=== PATIENT | male | born 1980 | race Caucasian/White ===

== ENCOUNTER 2019-06-21 06:27 | Emergency (ER) | payer MEDICAID ==
[~2019-06-21] VITALS: Ht 177.8 cm; Wt 90.9 kg
[~2019-06-21 06:27] MED LIST: HYDR1TAB PO; SULF-117 PO
[2019-06-21 06:33] VITALS: BP 132/84
[2019-06-21] MEDS ORDERED: sulfamethoxazole/trimethoprim DS (800/160mg) tablet PO ONE (06:55)
[2019-06-21] MEDS ORDERED: LORazepam 1 MG tablet PO ONE (06:55)
[2019-06-21] MEDS ORDERED: HYDROcodone/acetaminophen 10/325mg tab PO ONE (06:55)
[2019-06-21] MEDS ORDERED: LIDOcaine 1% w/epiNEPHrine 1:200,000 30ml vial IM ONE (06:55)
[2019-06-21] MEDS ORDERED: meclizine 12.5mg tablet PO ONE (07:20)
[2019-06-21] MEDS ORDERED: ondansetron 4mg rapidly disintigrating tab PO ONE (07:20)
[2019-06-21] MEDS ORDERED: SULF1TAB49 PO (07:22)
== END 2019-06-21 07:54 | disposition home or self-care (01) ==
LOC: ER 06:28
DX: L02.415 Cutaneous abscess of right lower limb (principal); F41.9 Anxiety disorder, unspecified; F32.9 Major depressive disorder, single episode, unspecified; F15.90 Other stimulant use, unspecified, uncomplicated; F11.90 Opioid use, unspecified, uncomplicated; Z86.19 Personal history of other infectious and parasitic diseases; Z86.14 Personal history of Methicillin resistant Staphylococcus aureus infection; Z79.2 Long term (current) use of antibiotics; Z79.899 Other long term (current) drug therapy
CPT/HCPCS: 10060; 99284

== ENCOUNTER 2019-06-24 07:37 | Emergency (ER) | payer MEDICAID ==
[~2019-06-24] VITALS: Ht 177.8 cm; Wt 86.4 kg
[~2019-06-24 07:37] MED LIST changes: +SULF1TAB49 PO
[2019-06-24 07:40] VITALS: BP 138/79
[2019-06-24 08:43] LABS: HEMATOCRIT 43.8 % (42.0-52.0); HEMOGLOBIN 15.1 g/dl (14.0-17.9); LYMPHOCYTES # (AUTO) 1.1 X10'3 (1.1-4.8); MEAN CORPUSCULAR HEMOGLOBIN 32.7 PG (27.0-31.0); MEAN CORPUSCULAR HGB CONC 34.6 g/dL (33.0-36.5); MEAN PLATELET VOLUME 7.2 FL (7.4-10.4); RED CELL DISTRIBUTION WIDTH 13.3 % (11.5-14.5); WHITE BLOOD COUNT 8.2 X10'3 (4.5-11.0)
[2019-06-24 08:45] LABS: BASOPHILS % (AUTO) 0.6 % (0-1); EOSINOPHILS # (AUTO) 0.3 X10'3 (0-0.9); EOSINOPHILS % (AUTO) 3.1 % (0-6); LYMPHOCYTES % (AUTO) 13.9 % (21-51); MEAN CORPUSCULAR VOLUME 94.6 FL (78-98); MONOCYTES # (AUTO) 0.6 X10'3 (0-0.9); NEUTROPHILS # (AUTO) 6.1 X10'3 (1.8-7.7); NEUTROPHILS % (AUTO) 75.4 % (42-75); PLATELET COUNT 234 X10'3 (140-440); RED BLOOD COUNT 4.63 X10'6 (4.70-6.10)
[2019-06-24] MEDS ORDERED: DOXY100C43 PO (08:50)
[2019-06-24 08:55] LABS: ALANINE AMINOTRANSFERASE 27 U/L (12-78); ALBUMIN/GLOBULIN RATIO 0.7 (1.1-1.5); ALKALINE PHOSPHATASE 66 IU/L (46-116); ANION GAP 9 (8-16); ASPARTATE AMINO TRANSFERASE 15 U/L (10-37); BILIRUBIN,TOTAL 0.1 MG/DL (0.1-1.0); BLOOD UREA NITROGEN 19 MG/DL (7-18); BUN/CREATININE RATIO 18.8 (5.4-32.0); CALCIUM 9.1 MG/DL (8.5-10.1); CHLORIDE 103 MMOL/L (99-107); CREATININE 1.01 MG/DL (0.60-1.10); GLUCOSE 91 MG/DL (70-104); POTASSIUM 3.8 MMOL/L (3.5-5.1); SODIUM 139 MMOL/L (135-145); TOTAL CARBON DIOXIDE 26.7 MMOL/L (24-32); TOTAL PROTEIN 7.2 G/DL (6.4-8.2); eGFR 82 ML/MIN
== END 2019-06-24 09:02 | disposition home or self-care (01) ==
LOC: ER 07:38
DX: L02.415 Cutaneous abscess of right lower limb (principal); L03.115 Cellulitis of right lower limb; F41.9 Anxiety disorder, unspecified; F32.9 Major depressive disorder, single episode, unspecified; F15.90 Other stimulant use, unspecified, uncomplicated; F11.90 Opioid use, unspecified, uncomplicated; Z86.14 Personal history of Methicillin resistant Staphylococcus aureus infection; Z86.19 Personal history of other infectious and parasitic diseases; Z79.899 Other long term (current) drug therapy
CPT/HCPCS: 36415; 80053; 85025; 99283

== ENCOUNTER 2019-08-27 21:41 | Emergency (ER) | payer MEDICAID ==
[~2019-08-27] VITALS: Ht 180.3 cm; Wt 86.4 kg
[~2019-08-27 21:41] MED LIST changes: -SULF1TAB49 PO
[2019-08-27 21:53] VITALS: BP 126/80
[2019-08-28] MEDS ORDERED: BACDS PO (19:29)
== END 2019-08-27 22:43 | disposition left against medical advice (07) ==
LOC: ER 21:41
DX: L02.416 Cutaneous abscess of left lower limb (principal); Z53.21 Procedure and treatment not carried out due to patient leaving prior to being seen by health care provider

== ENCOUNTER 2019-08-28 17:29 | Emergency (ER) | payer MEDICAID ==
[~2019-08-28] VITALS: Ht 180.3 cm; Wt 89.0 kg
[~2019-08-28 17:29] MED LIST changes: +LIDOcaine 1% W/epiNEPHrine 1:100,000 20ml vial ONE
[2019-08-28 17:47] VITALS: BP 105/84
[2019-08-28] MEDS ORDERED: BACDS PO (19:29)
== END 2019-08-28 19:39 | disposition home or self-care (01) ==
LOC: ER 17:30
DX: L02.416 Cutaneous abscess of left lower limb (principal); F41.9 Anxiety disorder, unspecified; F32.9 Major depressive disorder, single episode, unspecified; F15.90 Other stimulant use, unspecified, uncomplicated; Z86.14 Personal history of Methicillin resistant Staphylococcus aureus infection; Z86.19 Personal history of other infectious and parasitic diseases; F11.90 Opioid use, unspecified, uncomplicated; Z79.899 Other long term (current) drug therapy
CPT/HCPCS: 10060; 99283

== ENCOUNTER 2019-11-19 01:04 | Emergency (ER) | payer MEDICAID ==
[~2019-11-19] VITALS: Ht 177.8 cm; Wt 86.3 kg
[~2019-11-19 01:04] MED LIST changes: -LIDOcaine 1% W/epiNEPHrine 1:100,000 20ml vial ONE
[2019-11-19 01:07] VITALS: BP 141/78
--- NOTE | 2019-11-19 02:01 | NUR ---
Dr. Scales request PIV in Pt.
--- NOTE | 2019-11-19 02:07 | NUR ---
DR. ORNELAS AT BEDSIDE WITH US TO EVAL ABSCESS. REPRORTS THE PIV IS NEEDED FOR IVABX
--- NOTE | 2019-11-19 02:11 | NUR ---
PT GOT UP OUT OF THE BED SOON DR. ORNELAS LEFT THE ROOM AND TOLD ME "IM GONNA BOUNCE...I'M SCARED...IM COMMING DOWN RIGHT NOW...I CAN'T DO THIS ...I'D RATHER ". I REQUESTED THAT HE WAIT UNTIL I GO GET THE MD AND THAT SHE MAY GIVE HIM SOME ABX ORALLY, BUT HE LEFT. MD UPDATED.
== END 2019-11-19 02:30 | disposition left against medical advice (07) ==
LOC: ER 01:04
DX: L02.31 Cutaneous abscess of buttock (principal); F41.9 Anxiety disorder, unspecified; F32.9 Major depressive disorder, single episode, unspecified; F17.200 Nicotine dependence, unspecified, uncomplicated; F12.90 Cannabis use, unspecified, uncomplicated; F15.90 Other stimulant use, unspecified, uncomplicated; F11.90 Opioid use, unspecified, uncomplicated; Z86.19 Personal history of other infectious and parasitic diseases; Z86.14 Personal history of Methicillin resistant Staphylococcus aureus infection; Z79.899 Other long term (current) drug therapy
CPT/HCPCS: 99284

== ENCOUNTER 2025-03-04 10:55 | Emergency (ER) | payer MEDICAID ==
[~2025-03-04] VITALS: Ht 180.3 cm; Wt 91.1 kg
[2025-03-04 10:59] VITALS: BP 141/106; RESP 16
--- NOTE | 2025-03-04 11:40 | Physician Documentation ---
History of Present Illness ~ Chief Complaint: Cold, cough & congestion Stated Complaint: CHEST CONGESTION/RUNNY NOSE Time Seen by MD: 11:14 Primary Medical Doctor: [facility] This is a 45-year-old male who presents with two weeks of productive cough, runn y nose, nasal congestion, and fatigue. Patient reports that symptoms had been improving until last week when they worsened after he worked three double shifts in a row, patient reports three days ago he did have a fever though this has resolved. Patient reports no chest pain or difficulty breathing. Medication Reconciliation Allergies: Coded Allergies: No Known Allergies (Unverified , 08/27/19) Scheduled Hydrocodone/Acetaminophen (Vicodin 5-500 Tablet), 5 MG PO PRN, (Reported) Sulfamethoxazole/Trimethoprim (Septra Ds Tablet), 1 PO BID, (Reported) Past Medical History Past Medical History: Hepatitis C, MRSA Abscess, Anxiety, Depression Past Surgical History: no surgical history Alcohol Use: None Drug Use: marijuana, methamphetamine, heroin Lives with: Family Lives In: Home Occupation: employed Review of Systems ROS Cough, nasal congestion, fatigue as stated above in the HPI, otherwise all systems are reviewed and negative. Physical Exam Vital Signs: Temperature: 98.6, Source: Oral, Heart Rate: 112, Respiratory Rate: 16, BP: 141/106, Pulse Oximetry: 100, Weight: 91.100 Oxygen Flow Rate: 0 Physical Exam VITALS: Reviewed and as above. GENERAL: Alert, nontoxic appearing, no apparent distress. RESPIRATORY: No increased work of breathing, no respiratory distress, speaking in full clear sentences, clear lung sounds in all [place] CV: Regular rate and rhythm no murmur Progress Results/Orders Results/Orders Orders - VERNON SMITH [facility] SCREENER Chest,Two Views (03/04/25 11:51) Completed Orders - VERNON SMITH [employer]ENER Chest,Two Views (03/04/25 11:51) Vital Signs 03/04/25 03/04/25 03/04/25 10:59 11:47 12:47 Temp 98.6 98.6 98.6 Pulse 112 103 Resp 16 B/P (MAP) 141/106 (87) Pulse Ox 100 100 O2 Flow Rate 0 0 EKG/XRAY/CT/US/VASC/MRI Chest X-Ray : Additional Comments Exam: CHEST,TWO VIEWS DI CHEST,TWO VIEWS, HISTORY: Persistent Cough W/Fever COMPARISON: None None TECHNICAL DATA: 2 view of the chest was obtained. FINDINGS: Lines and tubes: None Cardiomediastinal silhouette: normal Pulmonary vasculature: normal Lung expansion: normal Lung airspace: normal Lung interstitium: normal Pleura: normal Pneumothorax: no Bones: Unremarkable Other: no IMPRESSION: No acute intrathoracic abnormality. Electronically Signed by:AILYN DEGROOT MD Date & Time: 03/04/25 1212 Dictated by: AILYN DEGROOT MD Dictation date and time: 03/04/25 1149 I have reviewed and agree with the radiology report. I have reviewed and interpreted the imaging as: No focal consolidation or pneumothorax Medical Decision Making Findings This 45-year-old male presented with two weeks of cough, chest congestion, nasal congestion, runny nose, and fatigue which had initially improved and then worsened, chest x-ray was obtained and did not demonstrate evidence of pneumonia pneumothorax, additionally it was reassuring patient had clear lung sounds on exam and no evidence of hypoxia, initially patient was somewhat tachycardic in triage though this did resolve once the patient was placed in a room. Remainder of physical exam was benign and I suspect an upper respiratory tract infection. Patient is appropriate for outpatient follow up and provided home care instr uctions and careful return to care precautions which he verbalized understanding of. Differential Dx:Considerations: Include: Allergic rhinitis, Influenza, Pneumonia, Pnuemonitis, Sinusitis Departure Time of Disposition: 12:37 Disposition: 01 HOME / SELF CARE / HOMELESS Impression: Primary Impression: Acute respiratory infection Additional Impression: Cough Qualified Codes: R05.1 - Acute cough Condition: Improved Discharge Instructions: Upper Respiratory Infection, Adult, [id number] Additional Instructions: This appears to be a upper respiratory tract infection likely due to a viral illness. Rest, stay well hydrated, cover your cough, and wash your hands frequently. You may use ibuprofen and or Tylenol as needed for pain or fever. Please follow up with your primary care provider in the next few days. Please return to the emergency department for any new or worsening concerning symptoms including but not limited to chest pain, difficulty breathing, or a fever over 100.4 that does not lower with ibuprofen or Tylenol. Referrals: NO PRIMARY CARE PROVIDER (PCP) Education Educated: Patient Educated regarding: diagnosis, treatment, prognosis Signature Scribe Signature: No scribe Attestation: The note accurately reflects work and decisions made by me.ANNALEE Sevilla 21:45 VERNON SMITH March 04, 2025 11:40
[2025-03-04 11:47] VITALS: PULSE 103; O2SAT 100
--- NOTE | 2025-03-04 12:14 | RADIOLOGY REPORT ---
DI CHEST,TWO VIEWS, HISTORY: Persistent Cough W/Fever COMPARISON: None None TECHNICAL DATA: 2 view of the chest was obtained. FINDINGS: Lines and tubes: None Cardiomediastinal silhouette: normal Pulmonary vasculature: normal Lung expansion: normal Lung airspace: normal Lung interstitium: normal Pleura: normal Pneumothorax: no Bones: Unremarkable Other: no IMPRESSION: No acute intrathoracic abnormality.
[2025-03-04 12:47] VITALS: TEMP 98.6
== END 2025-03-04 12:48 | disposition home or self-care (01) ==
LOC: ER 10:55
DX: J22 Unspecified acute lower respiratory infection (principal); F41.9 Anxiety disorder, unspecified; F32.A Depression, unspecified; F12.90 Cannabis use, unspecified, uncomplicated; F15.90 Other stimulant use, unspecified, uncomplicated; F11.90 Opioid use, unspecified, uncomplicated; Z79.899 Other long term (current) drug therapy
CPT/HCPCS: 71046; 99283